=== PATIENT | male | born 1955 | race Caucasian/White ===

== ENCOUNTER 2022-11-30 09:55 | Inpatient (IN) | payer OTHER ==
[2022-11-30 10:28] VITALS: BMI 25.2
[2022-11-30] MEDS ORDERED: MAGNESIUM HYDROX 2400MG/30ML ORAL SUSPENSION 30 ML CUP PO PRN (11:49)
[2022-11-30] MEDS ORDERED: POLYETHYLENE GLYCOL (HEALTHYLAX) 3350 17 GM PACKET PO PRN (11:49)
[2022-11-30] MEDS ORDERED: ONDANSETRON *ODT* 4 MG TABLET SL PRN (11:49)
[2022-11-30] MEDS ORDERED: LOPERAMIDE HCL 2 MG CAPSULE PO PRN (11:49)
[2022-11-30] MEDS ORDERED: ACETAMINOPHEN 325 MG TABLET (FP) PO PRN ×2 (11:49)
[2022-11-30] MEDS ORDERED: IBUPROFEN 400 MG TABLET (FP) PO PRN (11:49)
[2022-11-30] MEDS ORDERED: BENZOCAINE/MENTHOL (CHLORASEPTIC ) LOZENGE MM PRN (11:49)
[2022-11-30] MEDS ORDERED: IBUPROFEN 600 MG TABLET (FP) PO PRN (11:49)
[2022-11-30] MEDS ORDERED: MAG HYDROX/AL HYDROX/SIMETH 30 ML UNIT-DOSE CUP PO PRN (11:49)
[2022-11-30] MEDS ORDERED: chlordiazePOXIDE HCL 25 MG CAPSULE PO PRN (11:49)
[2022-11-30] MEDS ORDERED: NALOXONE HCL (KLOXXADO) 8 MG SPRAY NS PRN (11:49)
[2022-11-30] MEDS ORDERED: DICYCLOMINE HCL 10 MG CAPSULE PO PRN (11:49)
[2022-11-30] MEDS ORDERED: METHOCARBAMOL 500 MG TABLET PO PRN (11:49)
[2022-11-30] MEDS ORDERED: chlordiazePOXIDE HCL 25 MG CAPSULE ONE (12:30)
[2022-11-30 14:38] LABS: HEMATOCRIT 43.4 % (35.4-49); HEMOGLOBIN 14.9 GM/dL (11.7-16.9); MCHC 34.4 g/dl (32.0-35.9); MEAN CELL VOLUME 98.9 fl (80-96); MEAN PLT VOLUME 9.5 fl (7.5-11.1); PLATELET COUNT 170 10^3/uL (134-434); RBC 4.39 M/mm3 (4.00-5.60); RDW 13.2 % (11.9-15.9); WHITE BLOOD COUNT 5.4 K/mm3 (4.0-10.0)
[2022-11-30 14:57] LABS: SICKLE CELL SCREEN NEGATIVE (NEGATIVE)
[2022-11-30 15:02] LABS: ALBUMIN 3.5 g/dl (3.4-5.0); BLOOD UREA NITROGEN 11.6 mg/dL (7-18)
[2022-11-30 15:04] LABS: CREATININE 1.1 mg/dL (0.55-1.3)
[2022-11-30 15:06] LABS: BILIRUBIN,TOTAL 0.7 mg/dL (0.2-1); TOT PROT 6.5 g/dl (6.4-8.2)
[2022-11-30 15:12] LABS: CALCIUM 9.3 mg/dL (8.5-10.1)
[2022-11-30] MEDS: chlordiazePOXIDE HCL 25 MG CAPSULE PO SCH ×2 (17:42→22:31)
[2022-11-30] MEDS: NICOTINE 10 MG CARTRIDGE (INHALER) IH PRN (17:45)
[2022-11-30] MEDS: NICOTINE POLACRILEX 2 MG GUM BUC PRN (17:45)
[2022-11-30] MEDS: THIAMINE HCL 100 MG TABLET (FP) PO SCH (22:31)
[2022-11-30] MEDS: MELATONIN 5 MG TABLETS PO SCH (22:31)
[2022-12-01] MEDS: chlordiazePOXIDE HCL 25 MG CAPSULE PO SCH ×4 (06:18→22:40)
[2022-12-01] MEDS: NICOTINE 21 MG/24 HOURS TOPICAL PATCH TD SCH (10:15)
[2022-12-01] MEDS: PRENATAL VITAMINS W/ FOLIC ACID TABLET (FP) PO SCH (10:15)
[2022-12-01] MEDS: hydrOXYzine PAMOATE 25 MG CAPSULE (FP) PO PRN (18:14)
[2022-12-01] MEDS: MELATONIN 5 MG TABLETS PO SCH (22:38)
[2022-12-01] MEDS: THIAMINE HCL 100 MG TABLET (FP) PO SCH (22:38)
[2022-12-01] MEDS: BISMUTH SUBSALICYLATE 262 MG/15 ML BTL PO PRN (22:39)
[2022-12-02] MEDS: chlordiazePOXIDE HCL 25 MG CAPSULE PO SCH ×4 (05:23→22:10)
[2022-12-02] MEDS: BISMUTH SUBSALICYLATE 262 MG/15 ML BTL PO PRN ×3 (05:28→22:12)
[2022-12-02] MEDS: PRENATAL VITAMINS W/ FOLIC ACID TABLET (FP) PO SCH (10:09)
[2022-12-02] MEDS: NICOTINE 21 MG/24 HOURS TOPICAL PATCH TD SCH (10:09)
[2022-12-02] MEDS: MELATONIN 5 MG TABLETS PO SCH (22:10)
[2022-12-02] MEDS: THIAMINE HCL 100 MG TABLET (FP) PO SCH (22:10)
[2022-12-03] MEDS ORDERED: chlordiazePOXIDE HCL 10 MG CAPSULE PO PRN
[2022-12-03] MEDS: chlordiazePOXIDE HCL 10 MG CAPSULE PO SCH ×4 (05:32→22:46)
[2022-12-03] MEDS: BISMUTH SUBSALICYLATE 262 MG/15 ML BTL PO PRN ×3 (05:33→18:09)
[2022-12-03] MEDS: NICOTINE 21 MG/24 HOURS TOPICAL PATCH TD SCH (10:15)
[2022-12-03] MEDS: PRENATAL VITAMINS W/ FOLIC ACID TABLET (FP) PO SCH (10:15)
[2022-12-03] MEDS: THIAMINE HCL 100 MG TABLET (FP) PO SCH (22:45)
[2022-12-03] MEDS: MELATONIN 5 MG TABLETS PO SCH (22:45)
[2022-12-04] MEDS: chlordiazePOXIDE HCL 10 MG CAPSULE PO SCH ×2 (05:34→17:23)
[2022-12-04] MEDS: hydrOXYzine PAMOATE 25 MG CAPSULE (FP) PO PRN ×2 (10:14→22:10)
[2022-12-04] MEDS: PRENATAL VITAMINS W/ FOLIC ACID TABLET (FP) PO SCH (10:14)
[2022-12-04] MEDS: NICOTINE 21 MG/24 HOURS TOPICAL PATCH TD SCH (10:18)
[2022-12-04] MEDS: BISMUTH SUBSALICYLATE 262 MG/15 ML BTL PO PRN ×2 (10:19→22:11)
[2022-12-04] MEDS: NICOTINE POLACRILEX 2 MG GUM BUC PRN (10:30)
[2022-12-04] MEDS: NICOTINE 10 MG CARTRIDGE (INHALER) IH PRN (10:30)
[2022-12-04] MEDS: THIAMINE HCL 100 MG TABLET (FP) PO SCH (22:10)
[2022-12-04] MEDS: MELATONIN 5 MG TABLETS PO SCH (22:10)
[2022-12-05] MEDS ORDERED: chlordiazePOXIDE HCL 10 MG CAPSULE PO ONE (05:00)
[2022-12-05] MEDS: BISMUTH SUBSALICYLATE 262 MG/15 ML BTL PO PRN (05:39)
[2022-12-05] MEDS: NICOTINE 21 MG/24 HOURS TOPICAL PATCH TD SCH (10:24)
[2022-12-05] MEDS: PRENATAL VITAMINS W/ FOLIC ACID TABLET (FP) PO SCH (10:24)
[2022-12-05] MEDS: hydrOXYzine PAMOATE 25 MG CAPSULE (FP) PO PRN (10:24)
[2022-12-05 12:52] VITALS: BP 105/71; PULSE 87; RESP 16; TEMP 97.9
== END 2022-12-05 13:07 | disposition other institution (70) | DRG 897 ==
LOC: YASAS 09:55 → Y3N 13:15
PROVIDERS: ADMIT Allergy & Immunology; ATTEND Surgery
PROC: HZ2ZZZZ Detoxification Services for Substance Abuse Treatment (ICD-10-PCS; principal; 2022-11-30)
DX: F10.230 Alcohol dependence with withdrawal, uncomplicated (principal); F17.210 Nicotine dependence, cigarettes, uncomplicated; Z87.81 Personal history of (healed) traumatic fracture
CPT/HCPCS: 36415; 80053; 83036; 85027; 85660; 86780; 87811; C9803-CS; U0003; U0005

== ENCOUNTER 2022-12-05 12:43 | Inpatient (IN) | payer OTHER ==
[2022-12-05] MEDS ORDERED: MAG HYDROX/AL HYDROX/SIMETH 30 ML UNIT-DOSE CUP PO PRN (16:12)
[2022-12-05] MEDS ORDERED: MAGNESIUM HYDROX 2400MG/30ML ORAL SUSPENSION 30 ML CUP PO PRN (16:12)
[2022-12-05] MEDS ORDERED: BENZOCAINE/MENTHOL (CHLORASEPTIC ) LOZENGE MM PRN (16:12)
[2022-12-05] MEDS ORDERED: IBUPROFEN 400 MG TABLET (FP) PO PRN (16:12)
[2022-12-05] MEDS ORDERED: P-EPHED 60MG/TRIPROLIDI 2.5MG TABLET PO PRN (16:12)
[2022-12-05] MEDS ORDERED: guaiFENesin 200 MG/10 ML 10 ML UNIT-DOSE CUPS PO PRN (16:12)
[2022-12-05] MEDS ORDERED: NICOTINE 21 MG/24 HOURS TOPICAL PATCH TD PRN (16:12)
[2022-12-05] MEDS ORDERED: ACETAMINOPHEN 325 MG TABLET (FP) PO PRN (16:12)
[2022-12-05] MEDS ORDERED: POLYETHYLENE GLYCOL (HEALTHYLAX) 3350 17 GM PACKET PO PRN (16:12)
[2022-12-05] MEDS ORDERED: CYANOCOBALAMIN (VITAMIN B-12) 1000 MCG/1 ML VIAL IM ONE (16:21)
[2022-12-05] MEDS: BACLOFEN 10 MG TABLET (FP) PO SCH (21:45)
[2022-12-05] MEDS: THIAMINE HCL 100 MG TABLET (FP) PO SCH (21:45)
[2022-12-05] MEDS: MELATONIN 5 MG TABLETS PO SCH (21:45)
[2022-12-05] MEDS: LOPERAMIDE HCL 2 MG CAPSULE PO PRN (21:47)
[2022-12-06] MEDS: BACLOFEN 10 MG TABLET (FP) PO SCH ×3 (06:54→21:36)
[2022-12-06] MEDS: LOPERAMIDE HCL 2 MG CAPSULE PO PRN ×2 (06:56→21:37)
[2022-12-06] MEDS: NICOTINE 10 MG CARTRIDGE (INHALER) IH PRN ×2 (09:38→21:36)
[2022-12-06] MEDS: PRENATAL VITAMINS W/ FOLIC ACID TABLET (FP) PO SCH (09:38)
[2022-12-06] MEDS: NICOTINE 7 MG/24 HOURS TOPICAL PATCH TD SCH (09:40)
[2022-12-06] MEDS: hydrOXYzine PAMOATE 25 MG CAPSULE (FP) PO PRN (21:35)
[2022-12-06] MEDS: THIAMINE HCL 100 MG TABLET (FP) PO SCH (21:35)
[2022-12-06] MEDS: MELATONIN 5 MG TABLETS PO SCH (21:35)
[2022-12-07] MEDS: BACLOFEN 10 MG TABLET (FP) PO SCH ×3 (06:21→21:10)
[2022-12-07] MEDS: LOPERAMIDE HCL 2 MG CAPSULE PO PRN ×3 (06:22→21:10)
[2022-12-07 06:53] VITALS: TEMP 97.7
[2022-12-07] MEDS: PRENATAL VITAMINS W/ FOLIC ACID TABLET (FP) PO SCH (10:00)
[2022-12-07] MEDS: NICOTINE 7 MG/24 HOURS TOPICAL PATCH TD SCH (10:00)
[2022-12-07] MEDS: THIAMINE HCL 100 MG TABLET (FP) PO SCH (21:09)
[2022-12-07] MEDS: MELATONIN 5 MG TABLETS PO SCH (21:09)
[2022-12-07] MEDS: hydrOXYzine PAMOATE 25 MG CAPSULE (FP) PO PRN (21:10)
[2022-12-08] MEDS: BACLOFEN 10 MG TABLET (FP) PO SCH ×3 (07:02→21:33)
[2022-12-08] MEDS: LOPERAMIDE HCL 2 MG CAPSULE PO PRN ×3 (07:03→22:42)
[2022-12-08 07:54] VITALS: RESP 16
[2022-12-08] MEDS: PRENATAL VITAMINS W/ FOLIC ACID TABLET (FP) PO SCH (10:04)
[2022-12-08] MEDS: NICOTINE 7 MG/24 HOURS TOPICAL PATCH TD SCH (10:04)
[2022-12-08] MEDS: MELATONIN 5 MG TABLETS PO SCH (21:33)
[2022-12-08] MEDS: THIAMINE HCL 100 MG TABLET (FP) PO SCH (21:33)
[2022-12-08] MEDS: hydrOXYzine PAMOATE 25 MG CAPSULE (FP) PO PRN (21:33)
[2022-12-09 06:55] VITALS: PULSE 89
[2022-12-09] MEDS: BACLOFEN 10 MG TABLET (FP) PO SCH ×3 (07:14→21:04)
[2022-12-09] MEDS: NICOTINE 7 MG/24 HOURS TOPICAL PATCH TD SCH (09:59)
[2022-12-09] MEDS: PRENATAL VITAMINS W/ FOLIC ACID TABLET (FP) PO SCH (09:59)
[2022-12-09] MEDS: hydrOXYzine PAMOATE 25 MG CAPSULE (FP) PO PRN (21:04)
[2022-12-09] MEDS: THIAMINE HCL 100 MG TABLET (FP) PO SCH (21:04)
[2022-12-09] MEDS: MELATONIN 5 MG TABLETS PO SCH (21:04)
[2022-12-10] MEDS: BACLOFEN 10 MG TABLET (FP) PO SCH ×3 (06:12→21:56)
[2022-12-10] MEDS: LOPERAMIDE HCL 2 MG CAPSULE PO PRN (06:12)
[2022-12-10] MEDS: PRENATAL VITAMINS W/ FOLIC ACID TABLET (FP) PO SCH (09:08)
[2022-12-10] MEDS: NICOTINE 7 MG/24 HOURS TOPICAL PATCH TD SCH (09:08)
[2022-12-10] MEDS: hydrOXYzine PAMOATE 25 MG CAPSULE (FP) PO PRN (21:56)
[2022-12-10] MEDS: MELATONIN 5 MG TABLETS PO SCH (21:56)
[2022-12-10] MEDS: THIAMINE HCL 100 MG TABLET (FP) PO SCH (21:56)
[2022-12-11] MEDS: BACLOFEN 10 MG TABLET (FP) PO SCH (06:47)
[2022-12-11] MEDS: LOPERAMIDE HCL 2 MG CAPSULE PO PRN (06:47)
[2022-12-11 07:37] VITALS: BP 115/76
[2022-12-11] MEDS: NICOTINE 7 MG/24 HOURS TOPICAL PATCH TD SCH (09:00)
[2022-12-11] MEDS: PRENATAL VITAMINS W/ FOLIC ACID TABLET (FP) PO SCH (09:00)
== END 2022-12-11 09:10 | disposition home or self-care (01) | DRG 895 ==
LOC: YASAS 12:43 → Y3E 12:44
PROVIDERS: ADMIT Allergy & Immunology; ATTEND Psychiatry & Neurology Pain Medicine
PROC: HZ42ZZZ Group Counseling for Substance Abuse Treatment, Cognitive-Behavioral (ICD-10-PCS; principal; 2022-12-05)
DX: F10.20 Alcohol dependence, uncomplicated (principal); F17.210 Nicotine dependence, cigarettes, uncomplicated; R19.7 Diarrhea, unspecified; Z87.81 Personal history of (healed) traumatic fracture
CPT/HCPCS: 36415; 82140; 86803; J0475